=== PATIENT | female | born 2000 | race Caucasian/White ===

== ENCOUNTER → 2023-04-12 19:22 | Emergency (ER) | payer OTHER, SELFPAY ==
[2023-04-12 19:29] VITALS: BP 129/82; PULSE 96; RESP 16; O2SAT 96; BMI 23.2
--- NOTE | 2023-04-12 19:30 | XR_ITS ---
The [address] [address] Patient Name: HAO MOLINA MRN: [id number] date: 2000 Sex: F Assigned Patient Location: ER Current Patient Location: ER Accession/Order Number: [id number] Exam Date: 04/12/2023 19:48 Report Date: 04/12/2023 20:28 At the request of: CHAS VILLEGAS Procedure: XR foot RT min 3V IMAGES REVIEWED: XR foot RT min 3V, XR ankle RT min 3V COMPARISON: None available. CLINICAL INDICATION: pain FINDINGS/IMPRESSION: 1. No evidence of acute osseous abnormality of the right ankle or right foot. 2. Moderate hallux valgus. 3. 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 Electronically authenticated by: IDRIS KIMBALL Date: 04/12/2023 20:28
--- NOTE | 2023-04-12 19:30 | XR_ITS ---
The [address] [address] Patient Name: HAO MOLINA MRN: [id number] date: 2000 Sex: F Assigned Patient Location: ER Current Patient Location: ER Accession/Order Number: [id number] Exam Date: 04/12/2023 19:48 Report Date: 04/12/2023 20:28 At the request of: CHAS VILLEGAS Procedure: XR ankle RT min 3V IMAGES REVIEWED: XR foot RT min 3V, XR ankle RT min 3V COMPARISON: None available. CLINICAL INDICATION: pain FINDINGS/IMPRESSION: 1. No evidence of acute osseous abnormality of the right ankle or right foot. 2. Moderate hallux valgus. 3. 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 Electronically authenticated by: IDRIS KIMBALL Date: 04/12/2023 20:28
--- NOTE | 2023-04-12 19:47 | ED.LOWEXI1 ---
HPI - Extremity Injury (Lower) General Chief Complaint: Extremity Injury, Lower Stated Complaint: RT FOOT INJURY Time Seen by Provider: 04/12/23 19:30 Source: patient Mode of arrival: walk-in History of Present Illness HPI Narrative: Presenting with right ankle pain that started after she stepped into a hole while in the backyard the patient mentioned that at that time she twisted her ankle and she felt a pop but she continued to work normally and after few minutes she started having severe pain and she was not able to put weight on her right ankle The patient coming to us with a pain in her foot mostly on the right side Related Data Previous Rx's Medication Instructions Recorded ibuprofen 600 mg tablet 600 mg PO Q8H PRN pain #20 tabs 04/12/23 Allergies Allergy/AdvReac Type Severity Reaction Status Date / Time No Known Drug Allergies Allergy Verified 04/12/23 19:32 Review of Systems ROS Status of ROS 10 or more systems reviewed and unremarkable except as noted in history and below Exam Narrative Exam Narrative: Nurses notes and vital signs reviewed and patient is not hypoxic. General: Well-appearing and in no apparent distress. Skin: Warm, dry, no pallor noted. No rash. Head: Normocephalic, atraumatic. Neck: Supple, non-tender. Eye: Pupils are equal, round and EOMI. No scleral icterus. Ears, Nose, Mouth, and Throat: TM are clear, no nasal mucosal hypertrophy. Oral mucosa is moist, no posterior oropharynx erythema, uvula is mid-line Cardiovascular: Regular Rate and Rhythm without murmur, gallop or rub. Respiratory: No accessory muscle use or respiratory distress. Lungs are clear to auscultation, no wheezing, rales or rhonchi Chest Wall: no tenderness Back: No midline thoracic or lumbar vertebral tenderness. No CVA tenderness Musculoskeletal: normal ROM, no calf or popliteal tenderness, no lower extremity edema/swelling GI: Abdomen is soft, non-distended. Normal bowel sounds. No masses appreciated. No tenderness to palpation. No rebound, guarding, or rigidity noted. Neurological: A&O x4. No cranial nerve dysfunction observed. No truncal ataxia. Moves all extremities. Sensation intact. Psychiatric: Cooperative and interactive. Normal mood and affect. Constitutional Vital Signs, click to edit/add: Last Vital Signs Pulse 96 H 04/12/23 19:29 Resp 16 04/12/23 19:29 BP 129/82 04/12/23 19:29 Pulse Ox 96 04/12/23 19:29 O2 Del Method Room Air 04/12/23 19:29 Course Vital Signs Vital signs: Vital Signs Pulse Rate 96 H 04/12/23 19:29 Respiratory Rate 16 04/12/23 19:29 Blood Pressure 129/82 04/12/23 19:29 Pulse Oximetry 96 04/12/23 19:29 Oxygen Delivery Method Room Air 04/12/23 19:29 Pulse Rate 96 H 04/12/23 19:29 Respiratory Rate 16 04/12/23 19:29 Blood Pressure 129/82 04/12/23 19:29 Pulse Oximetry 96 04/12/23 19:29 Oxygen Delivery Method Room Air 04/12/23 19:29 MDM - Extremity Injury (Lower) MDM Narrative Medical decision making narrative: X-ray of the right foot and ankle showed no acute significant pathology the patient was treated with nonweightbearing as well as Drew wrap Ibuprofen high-dose for pain management and follow-up with podiatry as outpatient The patient is to follow up with primary care physician in next 2-3 days or to return to the emergency department should any of the signs or symptoms worsen or new symptoms develop. The patient agrees with the following Diagnosis and Treatment plan and the patient will be discharged home. Discharge Plan Discharge Chief Complaint: Extremity Injury, Lower Clinical Impression: Ankle sprain, Metatarsalgia Patient Disposition: Home, Self-Care Time of Disposition Decision: 20:42 Condition: Good Mode of Transportation: Private Vehicle Prescriptions / Home Meds: New ibuprofen 600 mg tablet 600 mg PO Q8H PRN (Reason: pain) Qty: 20 0RF Instructions: Ankle Sprain (ED), Metatarsalgia (DC) Stand Alone Forms: Portal Instructions Referrals: Physician,Non-Staff, MD [Primary Care Provider] - 1 week Rosales Plata DPM [Physician] - 1 week
== END | disposition home or self-care (01) ==
PROVIDERS: Emergency Provider Emergency Medicine
DX: S93.401A Sprain of unspecified ligament of right ankle, initial encounter (principal); M77.41 Metatarsalgia, right foot; W18.42XA Slipping, tripping and stumbling without falling due to stepping into hole or opening, initial encounter
CPT/HCPCS: 73610; 73630; 99283

== ENCOUNTER 2023-04-18 09:48 | Outpatient (OUT) | payer OTHER, SELFPAY ==
--- NOTE | 2023-04-18 | XR_ITS ---
The [address] [address] Patient Name: HAO MOLINA MRN: [id number] date: 2000 Sex: F Assigned Patient Location: [facility] Current Patient Location: [facility] Accession/Order Number: [id number] Exam Date: 04/18/2023 10:05 Report Date: 04/18/2023 11:08 At the request of: DIOGENES PRESLEY Procedure: XR foot YASMINE min 3V EXAMINATION: XR foot YASMINE min 3V, XR ankle YASMINE min 3V HISTORY: BILATERAL FOOT PAIN ; lateral right ankle pain since injury 04/12/2023; lateral left ankle pain after running COMPARISON: XR right foot and ankle 04/12/2023 FINDINGS: RIGHT FINDINGS: BONES: Bunion formation and valgus deformity at the first metatarsophalangeal joint. No fracture, dislocation, or significant joint space narrowing. Unremarkable ankle joint. SOFT TISSUES: No visible soft tissue swelling. OTHER: Negative. LEFT FINDINGS: BONES: Bunion formation and valgus deformity at the first metatarsophalangeal joint. No fracture, dislocation, or significant joint space narrowing. Unremarkable ankle joint. SOFT TISSUES: No visible soft tissue swelling. OTHER: Negative. XR/XR foot YASMINE min 3V IMPRESSION: RIGHT CONCLUSION: No acute bone abnormality of the foot or ankle. Moderate hallux valgus. LEFT CONCLUSION: No acute bone abnormality of the foot or ankle. Moderate hallux valgus. Electronically authenticated by: FILIPE GARNER Date: 04/18/2023 11:08
--- NOTE | 2023-04-18 | XR_ITS ---
The [address] [address] Patient Name: HAO MOLINA MRN: [id number] date: 2000 Sex: F Assigned Patient Location: [facility] Current Patient Location: [facility] Accession/Order Number: [id number] Exam Date: 04/18/2023 10:05 Report Date: 04/18/2023 11:08 At the request of: DIOGENES PRESLEY Procedure: XR ankle YASMINE min 3V EXAMINATION: XR foot YASMINE min 3V, XR ankle YASMINE min 3V HISTORY: BILATERAL FOOT PAIN ; lateral right ankle pain since injury 04/12/2023; lateral left ankle pain after running COMPARISON: XR right foot and ankle 04/12/2023 FINDINGS: RIGHT FINDINGS: BONES: Bunion formation and valgus deformity at the first metatarsophalangeal joint. No fracture, dislocation, or significant joint space narrowing. Unremarkable ankle joint. SOFT TISSUES: No visible soft tissue swelling. OTHER: Negative. LEFT FINDINGS: BONES: Bunion formation and valgus deformity at the first metatarsophalangeal joint. No fracture, dislocation, or significant joint space narrowing. Unremarkable ankle joint. SOFT TISSUES: No visible soft tissue swelling. OTHER: Negative. XR/XR ankle YASMINE min 3V IMPRESSION: RIGHT CONCLUSION: No acute bone abnormality of the foot or ankle. Moderate hallux valgus. LEFT CONCLUSION: No acute bone abnormality of the foot or ankle. Moderate hallux valgus. Electronically authenticated by: FILIPE GARNER Date: 04/18/2023 11:08
== END 2023-04-18 09:49 | disposition home or self-care (01) ==
LOC: RAD 09:49
PROVIDERS: Visit Provider Physician Assistant
DX: M25.572 Pain in left ankle and joints of left foot (principal); M25.571 Pain in right ankle and joints of right foot
CPT/HCPCS: 73610; 73630

== ENCOUNTER 2023-09-28 14:45 | Emergency (ER) | payer SELFPAY ==
[2023-09-28 14:58] VITALS: BP 111/68; PULSE 127; RESP 16; TEMP 36.9; O2SAT 99; BMI 23.1
[2023-09-28 15:46] LABS: Bilirubin Urine NEGATIVE (NEGATIVE); Blood Urine NEGATIVE (NEGATIVE); Clarity Urine CLEAR (CLEAR); Color Urine YELLOW (YELLOW); Glucose Urine UA NEGATIVE (NEGATIVE); Ketones Urine NEGATIVE (NEGATIVE); Leukocyte Esterase Urine NEGATIVE (NEGATIVE); Nitrite Urine NEGATIVE (NEGATIVE); Protein Urine NEGATIVE (NEG/TRACE); Urobilinogen Urine 0.2 EU/dL (0.2-1.0); pH Urine 6.5 (5.0-9.0)
[2023-09-28 15:49] LABS: Influenza Virus A Antigen Negative; Influenza Virus B Antigen Negative; Internal Control Within Normal Limits; SARS-CoV-2 Ag NEGATIVE (NEGATIVE)
[2023-09-28 15:52] LABS: HCG Qualitative Urine* NEGATIVE (NEGATIVE)
[2023-09-28 15:53] LABS: Urine Microscopic Indicated NO
--- NOTE | 2023-09-28 16:28 | ED.NAVMDI1 ---
HPI - Nausea/Vomiting/Diarrhea General Chief complaint: Nausea/Vomiting/Diarrhea Stated complaint: NAUSEA Time Seen by Provider: 09/28/23 16:21 Source: patient Mode of arrival: walk-in History of Present Illness HPI Narrative: 22-year-old female presents for nausea and vomiting. It started during the night and she thinks it might be food poisoning. No diarrhea or fever. Her significant other did not get sick, they had pizza. She was worried about being dehydrated. Related Data Previous Rx's Medication Instructions Recorded ondansetron 4 mg disintegrating 4 mg PO Q6H PRN nausea and 09/28/23 tablet vomiting #20 tabs Allergies Allergy/AdvReac Type Severity Reaction Status Date / Time No Known Drug Allergies Allergy Verified 04/12/23 19:32 Review of Systems ROS Narrative A ten point review of systems is negative except as noted above. Exam Narrative Exam Narrative: Nurses note and vital signs reviewed and patient is not hypoxic. General: The patient appears well and in no apparent distress. Patient is resting comfortably on cart. Skin: Warm, dry, no pallor noted. There is no rash noted. Head: Normocephalic, atraumatic Eye: Normal conjunctiva, no drainage Ears, Nose, Mouth, and Throat: oral mucosa is moist. Nares patent. Cardiovascular: Regular Rate and Rhythm Respiratory: Patient is in no distress, no accessory muscle use, lungs are clear to auscultation, no wheezing, rales or rhonchi Back: non-tender GI: Soft and nontender, nondistended Musculoskeletal: The patient has no evidence of calf tenderness, no pitting edema, symmetrical pulses noted bilaterally Neurological: A&O, normal speech Psychiatric: Cooperative Constitutional Vital Signs, click to edit/add: Last Vital Signs Temp 98.5 F 09/28/23 14:58 Pulse 127 H 09/28/23 14:58 Resp 16 09/28/23 14:58 BP 111/68 09/28/23 14:58 Pulse Ox 99 09/28/23 14:58 O2 Del Method Room Air 09/28/23 14:58 Course Vital Signs Vital signs: Vital Signs Temperature 98.5 F 09/28/23 14:58 Pulse Rate 127 H 09/28/23 14:58 Respiratory Rate 16 09/28/23 14:58 Blood Pressure 111/68 02/01/24 14:58 Pulse Oximetry 99 09/28/23 14:58 Oxygen Delivery Method Room Air 09/28/23 14:58 Temperature 98.5 F 09/28/23 14:58 Pulse Rate 127 H 09/28/23 14:58 Respiratory Rate 16 09/28/23 14:58 Blood Pressure 111/68 09/28/23 14:58 Pulse Oximetry 99 09/28/23 14:58 Oxygen Delivery Method Room Air 09/28/23 14:58 MDM - Nausea/Vomiting/Diarrhea MDM Narrative Medical decision making narrative: Urinalysis does not show dehydration. She is not and she does not have COVID or influenza. She was offered IV fluids but does not feel that she needs them and she was given ODT Zofran here and prescribed same. Treatment diagnosis and follow-up were discussed with the patient. Differential Diagnosis Differential diagnosis: Likely food poisoning, gastroenteritis and dehydration Lab Data Attestation: I reviewed the patient's lab results. Labs: Lab Results 09/28/23 09/28/23 Range/Units 15:03 15:05 Urine Color Yellow (YELLOW) Urine Clarity Clear (CLEAR) Urine pH 6.5 (5.0-9.0) Ur Specific [place] 1.020 (1.005-1.025) Urine Protein Negative (NEG/TRACE) mg/dL Urine Glucose (UA) Negative (NEGATIVE) mg/dL Urine Ketones Negative (NEGATIVE) mg/dL Urine Occult Blood Negative (NEGATIVE) Urine Nitrite Negative (NEGATIVE) Urine Bilirubin Negative (NEGATIVE) Urine Urobilinogen 0.2 (0.2-1.0) EU/dL Ur Leukocyte Esterase Negative (NEGATIVE) Urine HCG, Qual Negative (NEGATIVE) Influenza Type A Ag Negative Influenza Type B Ag Negative SARS-CoV-2 Ag (CV2AG) Negative (NEGATIVE) Discharge Plan Discharge Chief Complaint: Nausea/Vomiting/Diarrhea Clinical Impression: Nausea and vomiting Patient Disposition: Home, Self-Care Time of Disposition Decision: 16:27 Condition: Good Mode of Transportation: Private Vehicle Prescriptions / Home Meds: New ondansetron 4 mg tablet,disintegrating 4 mg PO Q6H PRN (Reason: nausea and vomiting) Qty: 20 0RF Instructions: Acute Nausea and Vomiting (ED) Stand Alone Forms: Portal Instructions Referrals: Physician,Non-Staff, MD [Primary Care Provider] - 1 week
[2023-09-28] MEDS: ONDANSETRON 4 MG RAPDIS TABLET SL (16:32)
== END 2023-09-28 16:35 | disposition home or self-care (01) ==
PROVIDERS: Emergency Provider Emergency Medicine
DX: R11.2 Nausea with vomiting, unspecified (principal); Z20.822 Contact with and (suspected) exposure to COVID-19
CPT/HCPCS: 36415; 81003; 84703; 87804; 87811; 99285; Q0162

== ENCOUNTER 2024-01-26 02:23 | Emergency (ER) | payer BC, SELFPAY ==
[2024-01-26 02:28] VITALS: BP 123/83; PULSE 80; TEMP 36.9; O2SAT 97; BMI 22.8
--- OUTSIDE RECORDS SUMMARY | 2024-01-26 02:29 | XMS_ITS | CCD ---
Author Organization [facility] Care Team Providers Care Senior Examiner Name Role Phone BAO VELASQUEZ Attending Unavailable DR SUNITHA COLES Primary Care Unavailable BAO VELASQUEZ Admitting Unavailable BAO VELASQUEZ Consulting Unavailable DR SUNITHA COLES Primary Care Unavailable BAO VELASQUEZ Admitting Unavailable BAO VELASQUEZ Consulting Unavailable BAO VELASQUEZ Attending Unavailable Problems Active Problems Problem Classification Problem Date Documented Da te Episodic/Chronic Cardiac dysrhythmias (4 sources) Palpitations; Translations: [PALPITATIONS] Onset: 05-06-2021 Episodic Unclassified (2 sources) CONTACT W/AND (SUSP) EXPOS COVID-19; Translations: [CONTACT W/AND (SUSP) EXPOS COVID-19] Onset: 06-21-2021 Unclassified (1 source) COUGH, UNSPECIFIED; Translations: [COUGH, UNSPECIFIED] Onset: 06-21-2021 Viral infection (1 source) COVID-19; Translations: [COVID-19] Onset: 06-21-2021 Past or Other Problems Problem Classification Problem Date Documented Da te Episodic/Chronic Unclassified (1 source) CONTACT W/AND (SUSP) EXPOS COVID-19; Translations: [CONTACT W/AND (SUSP) EXPOS COVID-19] Onset: 06-16-2021 Results Test Name Value Interpretation Reference Range Facil ity Covid-19 PCR (CVDTBH)on 05-29 SARS-CoV-2 (COVID-19) RNA ANGELA+probe Ql (Unsp spec) Detected Critically abnormal NOT DETECTED [facility] Comment on above: Result Comment: This test is not yet jose roved or cleared by the [place] FDA. When there are no FDA-approved or cleared tests available, and other criteria are met, FDA can make tests available under an emergency access mechanism called an Emergency Use Authorization (EUA). The EUA for this test is supported by the Housekeeping Laundry Worker of Health and Human Service's (HHS's) declaration that circumstances exist to justify the emergency use of in vitro diagnostics for the detection and/or diagnosis of the virus that causes COVID-19. This EUA will remain in effect (meaning this test can be used) for the duration of the COVID-19 declaration justifying emergency of IVDs, unless it is terminated or revoked by FDA (after which the test may no longer be used). Performed By: #### C [facility] #### [facility] [address] [place] [address] Dr. Vale Isidro 03-16-2020 CNOV Office Visit (ORMIDD) ---- HAO MOLINA ([id number]) 2000 F Date Time Provider Department 03/16/20 9:45 AM CUCO MARTÍNEZ During your visit today, we recorded the following information about you: Cuco Martínez MD 03/16/2020 10:15 AM Signed [facility] OF [facility]AEDIC SURGERY AND SPORTS HEALTH Chief Complaint Patient presents with: Right Knee - New History of Present Illness Patient presents today for evaluation of her right knee. She is currently working at [employer] and sustained a injury to her knee on January 18 while cleaning a dog kennel. She had an old injury while pole vaulting in high school but states his most recent injury the knee Was out of place and she was able to relocate it herself. She has had significant apprehension about moving the knee due to concern for redislocation. She had an MRI done. PAIN EVALUATION No data found in the last 1 encounters. Review of Systems GENERAL: Negative GI: Negative MUSCULOSKELETAL: See HPI SKIN: Negative NEURO: Negative Past Medical History No past medical history on file. Current Medications No current outpatient medications on file prior to visit. No current facility-administer ed medications on file prior to visit. Allergies ALLERGIES No Known Allergies Physical Exam Right Knee: Generalized ligamentous laxity: Present (mild) Skin healthy and intact Effusion: no No varus malalignment No valgus malalignment Flexed ~ 30 deg, able to flex more but arc limited + Pain with patellar compression + No Increased laxity to patella but limited exam due to flexion No laxity to valgus stress No laxity to varus stress Not tested J sign Neurovascular exam normal distally Imaging No DJD or sig yo MRI: bone bruising consistent with dislocation, no loose body or fracture Assessment (M25.361) Patellar instability of right knee (primary encounter diagnosis) Plan We reviewed lateral patellar dislocation with the patient. We discussed the factors associated with patellar instability: patella yo, trochlear dysplasia, diffuse ligamentous laxity, elevated Q angle, and medial patellofemoral ligament tear. We encouraged non-operative treatment with an initial period of extension, followed by formal physical therapy and a patellar buttress brace. The possibility of loose body, chondral injury and role for advanced imaging was reviewed. Due to apprehension the patient has significant concern about moving the knee and we discussed the importance of physical therapy immediately to improve her extension. A prescription was provided as well as a patellar buttress brace. We discussed the possibility of permanent loss of motion without dedicated therapy. Follow-up in 4 weeks. Referring Provider: SUNITHA COLES [[id number]] Allergies As of Date: 03/16/2020 (No Known Allergies) Date Reviewed: 03/16/2020 Reviewed by: Shawn Alfonso - Fully Assessed Reason for Visit: New [[id number]] Primary Visit Diagnosis:Patellar instability of right knee [M25.361] Order(s):CONSULT TO PHYSICAL THERAPY (OUTSIDE) [2092764] Order #: [id number]: 1 Problem List As Of Date: 03/16/2020 (None) Letter Text Encounter Status:Closed by CUCO MARTÍNEZ MD on 03/16/20 [facility] 03-16-2020 PROGRESS HNO ID: [id number] Author: Cuco Martínez Service: ? Author Type: Physician Type: Progress Notes Filed: 03/16/2020 10:15 AM Note Text: DEPART[facility] OF [facility]EDIC SURGERY AND [facility]TS [facility] Chief Complaint Patient presents with: Right Knee - New History of Present Illness Patient presents today for evaluation of her right knee. She is currently working at [employer] and sustained a injury to her knee on January 18 while cleaning a dog kennel. She had an old injury while pole vaulting in high school but states his most recent injury the knee Was out of place and she was able to relocate it herself. She has had significant apprehension about moving the knee due to concern for redislocation. She had an MRI done. PAIN EVALUATION No data found in the last 1 encounters. Review of Systems GENERAL: Negative GI: Negative MUSCULOSKELETAL: See HPI SKIN: Negative NEURO: Negative Past Medical History No past medical history on file. Current Medications No current outpatient medications on file prior to visit. No current facility-administer ed medications on file prior to visit. Allergies ALLERGIES No Known Allergies Physical Exam Right Knee: Generalized ligamentous laxity: Present (mild) Skin healthy and intact Effusion: no No varus malalignment No valgus malalignment Flexed ~ 30 deg, able to flex more but arc limited + Pain with patellar compression + No Increased laxity to patella but limited exam due to flexion No laxity to valgus stress No laxity to varus stress Not tested J sign Neurovascular exam normal distally Imaging No DJD or sig yo MRI: bone bruising consistent with dislocation, no loose body or fracture Assessment (M25.361) Patellar instability of right knee (primary encounter diagnosis) Plan We reviewed lateral patellar dislocation with the patient. We discussed the factors associated with patellar instability: patella yo, trochlear dysplasia, diffuse ligamentous laxity, elevated Q angle, and medial patellofemoral ligament tear. We encouraged non-operative treatment with an initial period of extension, followed by formal physical therapy and a patellar buttress brace. The possibility of loose body, chondral injury and role for advanced imaging was reviewed. Due to apprehension the patient has significant concern about moving the knee and we discussed the importance of physical therapy immediately to improve her extension. A prescription was provided as well as a patellar buttress brace. We discussed the possibility of permanent loss of motion without dedicated therapy. Follow-up in 4 weeks. Normal [facility] Encounters Encounter Date Encounter Type Care Provider Facility Start: 06-16-2021 End: 06-16-[address] SUNITHA COLES Facility:[facility] Start: 05-06-2021 End: 05-07-2021 ambulatory BAO VELASQUEZ Facility:[facility] Payers Date Payer Category Payer Unknown [id number] 2000 Unknown [id number] 1961 Unknown [id number] Summary Purpose Family History No Family History Records FoundNo Family History Records Found Advance Directives No Advanced Directives Records FoundNo Advanced Directives Records Found Additional Source Comments INFORMATION SOURCE (unrecogn ized section and content) DATE CREATED AUTHOR 03/21/2020 [facility] DATE CREATED AUTHOR AUTHOR'S ORGANIZ ATION 06/22/2021 [facility] FOR RECORDS PERTAINING TO PATIENTS WHO ARE OR HAVE BEEN ENROLLED IN A CHEMICAL DEPENDENCY/SUBSTANCEABUSE PROGRAM, SOME INFORMATION MAY BE OMITTED. This clinical summary was aggregated from multiple sources. Caution should be exercised in using it in the provision of clinical care. This summary normalizes information from multiple sources, and as a consequence, information in this document may materially change the coding, format and clinical context of patient data. In addition, data may be omitted in some cases. CLINICAL DECISIONS SHOULD BE BASED ON THE PRIMARY CLINICAL RECORDS. [facility] [employer] [facility]. provides no warranty or guarantee of the accuracy or completeness of information in this document.
--- NOTE | 2024-01-26 02:48 | ED_ITS ---
HPI HPI - General Adult General Chief complaint: Dental/Oral Stated complaint: SORE THROAT Time Seen by Provider: 01/26/24 02:26 Source: patient Mode of arrival: walk-in Limitations: no limitations History of Present Illness HPI narrative: 23-year-old female presents for hoarse voice and sore throat. It started last evening and she is salt water gargle. She has not had any known ill contacts and has had no fever or rash. Symptom is continuous. Related Data Previous Rx's ?Medication ?Instructions ?Recorded ondansetron 4 mg disintegrating 4 mg PO Q6H PRN nausea and 09/28/23 tablet vomiting #20 tabs Allergies Allergy/AdvReac Type Severity Reaction Status Date / Time No Known Drug Allergies Allergy Verified 01/26/24 02:33 Opioid HPI Opioid Management Most Recent Opioid Data: Last Pain Scale 4 01/26/24 02:38 Last ED Pain Assessment 01/26/24 02:38 Review of Systems ROS Narrative A ten point review of systems is negative except as noted above. Exam Narrative Exam Narrative: Nurses note and vital signs reviewed and patient is not hypoxic. General: The patient appears well and in no apparent distress. Patient is resting comfortably on cart. Skin: Warm, dry, no pallor noted. There is no rash noted. Head: Normocephalic, atraumatic Eye: Normal conjunctiva, no drainage Ears, Nose, Mouth, and Throat: oral mucosa is moist. Nares patent. No pharyngeal erythema or exudate. Uvula is normal sized and midline. She is handling her oral secretions well. Her voice is hoarse. Cardiovascular: Regular Rate and Rhythm Respiratory: Patient is in no distress, no accessory muscle use, lungs are clear to auscultation, no wheezing, rales or rhonchi Back: non-tender GI: Soft and nontender Musculoskeletal: The patient has no evidence of calf tenderness, no pitting edema, symmetrical pulses noted bilaterally Neurological: Awake and alert Psychiatric: Cooperative Constitutional Vital Signs, click to edit/add: Last Vital Signs Temp 98.4 F 01/26/24 02:28 Pulse 80 01/26/24 02:28 Resp 16 01/26/24 02:28 BP 123/83 01/26/24 02:28 Pulse Ox 97 01/26/24 02:28 O2 Del Method Room Air 01/26/24 02:28 Course Vital Signs Vital signs: Vital Signs Temperature 98.4 F 01/26/24 02:28 Pulse Rate 80 01/26/24 02:28 Respiratory Rate 16 01/26/24 02:28 Blood Pressure 123/83 01/26/24 02:28 Pulse Oximetry 97 01/26/24 02:28 Oxygen Delivery Method Room Air 01/26/24 02:28 Temperature 98.4 F 01/26/24 02:28 Pulse Rate 80 01/26/24 02:28 Respiratory Rate 16 01/26/24 02:28 Blood Pressure 123/83 01/26/24 02:28 Pulse Oximetry 97 01/26/24 02:28 Oxygen Delivery Method Room Air 01/26/24 02:28 Medical Decision Making MDM Narrative Medical decision making narrative: Strep test is negative. My clinical impression is that she has viral l aryngitis. Antibiotic not indicated. Treatment diagnosis and follow-up were discussed with the patient. Lab Data Lab results reviewed: Yes I reviewed the patient's lab results Labs: Lab Results 01/26/24 Range/Units 02:30 Streptococcus Screen Negative Discharge Plan Discharge Stand Alone Forms: Portal Instructions Chief Complaint: Dental/Oral Clinical Impression: Laryngitis Patient Disposition: Home, Self-Care Time of Disposition Decision: 03:06 Condition: Good Mode of Transportation: Private Vehicle Prescriptions / Home Meds: No Action ondansetron 4 mg tablet,disintegrating 4 mg PO Q6H PRN (Reason: nausea and vomiting) Qty: 20 0RF Print Language: [place] Instructions: Laryngitis (ED) Referrals: Arpan Rainey MD [Primary Care Provider] - 1 week
[2024-01-26 02:54] LABS: Internal Control Within Normal Limits; Strep A Antigen Screen Negative
[2024-01-26] MEDS: DEXAMETHASONE SOD PHOS 10 MG/ML VIAL IM (02:55)
== END 2024-01-26 03:34 | disposition home or self-care (01) ==
PROVIDERS: Emergency Provider Emergency Medicine; PCP Family Medicine
DX: J04.0 Acute laryngitis (principal)
CPT/HCPCS: 87070; 87880; 96372; 99284; J1100